=== PATIENT | male | born 1950 | race Caucasian/White ===

== ENCOUNTER → 2017-05-12 | Outpatient (CLI) | payer MEDICARE, BC | LOC: M.RAD 09:27 | DX: R05 Cough (principal); R09.89 Other specified symptoms and signs involving the circulatory and respiratory systems ==

== ENCOUNTER → 2019-04-30 | Outpatient (CLI) | payer MEDICARE, BC | LOC: M.ULTRA 09:14 | DX: Z13.6 Encounter for screening for cardiovascular disorders (principal) ==